=== PATIENT | female | born 1990 | race Caucasian/White ===

== ENCOUNTER 2016-06-07 00:59 | Emergency (ER) ==
[2016-06-07] MEDS ORDERED: DEMEROL 25 MG/ML SYRINGE IVP STA (01:27)
[2016-06-07] MEDS ORDERED: ZOFRAN 4 MG/2 ML IVP STA (01:27)
[2016-06-07] MEDS ORDERED: GI COCKTAIL PO STA (01:29)
--- NOTE | 2016-06-07 01:30 | ED.PDOC ---
General ED Provider: Dr. TOREY CRAIG Chief Complaint: Nausea/Vomiting Stated Complaint: Been sick for 3 days, vomiting, abdominal cramps, today vomiting for 3 hrs, now vomiting bile. Time Seen by Physician: 01:28 Nursing and Triage Documentation Reviewed and Agree: Yes GI Complaint Exam - Vomiting/Diarrhea Complaint/Exam Symptoms Are: Still present Episodes of Vomiting over last 24 Hours: 10 Episodes of Diarrhea Over Last 24 Hours: 0 Initial Severity: Moderate Current Severity: Severe Character of Vomiting: Reports: Bilious Aggravating: Reports: Food, Liquids Alleviating: Reports: None Associated Signs and Symptoms: Reports: Light-headedness, Abdominal pain, Cramping. Denies: Dizziness, Melena, Hematemesis, Fever Menses: Regular Non-GI Risk Factors: Reports: None Surgical Obstruction Risk Factors: Reports: None Related Surgical History: Reports: None Abdominal Findings: Absent: Pulsatile mass, Abdominal distention, Unequal femoral pulses, Rebound tenderness Differential Diagnoses: Bowel Obstruction, Viral Gastroenteritis, Hepatitis, Pancreatitis, UTI Review of Systems - Review Of Systems Constitutional: Reports: Malaise, Weakness Eyes: Reports: No symptoms Ears, Nose, Mouth, Throat: Reports: No symptoms Respiratory: Reports: No symptoms Cardiac: Reports: No symptoms GI: Reports: Abdominal pain : Reports: No symptoms Musculoskeletal: Reports: No symptoms Skin: Reports: No symptoms Neurological: Reports: No symptoms Endocrine: Reports: No symptoms Hematologic/Lymphatic: Reports: No symptoms All Other Systems: Reviewed and Negative Past Medical History - Past Medical History Previously Healthy: Yes (note unable to get history) Endocrine: Reports: None Cardiovascular: Reports: None Respiratory: Reports: None Hematological: Reports: None Gastrointestinal: Reports: None Genitourinary: Reports: None Neuro/Psych: Reports: Anxiety Musculoskeletal: Reports: None Cancer: Reports: None - Surgical History General Surgical History: Reports: Unknown - Family History Family History: Reports: Unknown - Social History Smoking Status: Current every day smoker Smoking Cessation Counseling Time: > 3 min - 10 min Hx Substance Use: No Alcohol Screening: None Physical Exam - Physical Exam Appearance: Ill-appearing Pain Distress: Moderate Eyes: KATIE, EOMI, Conjunctiva clear ENT: Ears normal, Nose normal, Oropharynx normal Respiratory: Airway patent, Breath sounds clear, Breath sounds equal, Respirations nonlabored Cardiovascular: RRR, Pulses normal, No rub, No murmur GI/: Soft, Tender, Bowel sounds hyperactive Musculoskeletal: Normal strength, ROM intact, No edema, No calf tenderness Skin: Warm, Dry, Normal color Neurological: Sensation intact, Motor intact, Reflexes intact, Cranial nerves intact, Alert, Oriented Psychiatric: Affect appropriate, Mood appropriate Critical Care Note - Critical Care Note Total Time (mins): 0 Course - Course Orders, Labs, Meds: Orders Category Date Time Status ED IV/MEDIPORT/POWERPORT .ONCE EMERGENCY 06/07/16 01:27 Ordered AMYLASE Stat LAB 06/07/16 01:27 Ordered CBC W/ AUTO DIFF Stat LAB 06/07/16 01:27 Ordered COMPREHENSIVE METABOLIC PANEL Stat LAB 06/07/16 01:27 Ordered LIPASE Stat LAB 06/07/16 01:27 Ordered URINE Stat LAB 06/07/16 01:27 Uncollected 0.9 % Sodium Chloride [Saline Flush] MEDS 06/07/16 01:27 Ordered 1 syr IVF PRN PRN Meperidine HCl/Pf [Demerol 25 mg/ml Syringe] MEDS 06/07/16 01:27 Stat 25 mg IVP ONCE STA Ondansetron HCl/Pf [Zofran 4 mg/2 ml] MEDS 06/07/16 01:27 Stat 4 mg IVP ONCE STA CT ABDOMEN/PELVIS WO CONTRAST Stat RADS 06/07/16 01:27 Ordered Departure - Departure Time of Disposition: 02:45 Disposition: HOME SELF-CARE Discharge Problem: Gastroenteritis Instructions: Gastroenteritis (ED) Condition: Stable Pt referred to PMD for follow-up: Yes Additional Instructions: INCREASE HYDRATION SOFT DIET FOR 3-4 DAYS PROTONIX 40 PO DAILY ZOFRAN ODT 4 MG PO TID X 20 Allergies/Adverse Reactions: Allergies No Known Allergies Allergy (Unverified 04/10/16 17:26) Home Medications: Ambulatory Orders 1 [No Reported Medications] 04/10/16 Disposition Discussed With: Patient, Family
[2016-06-07 01:31] LABS: BASOPHILS # (AUTO) 0.1 K/uL (0-0.2); BASOPHILS % (AUTO) 0.5 % (0.0-3.0); EOSINOPHILS # (AUTO) 0.3 K/ul (0.0-0.7); EOSINOPHILS % (AUTO) 1.8 % (0.0-7.0); HEMATOCRIT 45.7 % (37.0-47.0); HEMOGLOBIN 15.8 g/dl (12.0-16.0); IMMATURE GRANULOCYTE % (AUTO) 0.5 % (0.0-5.0); MEAN CORPUSCULAR HEMOGLOBIN 31.5 pg (27.0-31.0); MEAN CORPUSCULAR HGB CONC 34.6 (31.8-35.4); MEAN CORPUSCULAR VOLUME 91.2 fl (81.0-99.0); MONOCYTES # (AUTO) 0.9 K/uL (0.4-2.0); MONOCYTES % (AUTO) 4.8 (0-10); NEUTROPHILS # (AUTO) 14.5 K/ul (2.0-6.9); NEUTROPHILS % (AUTO) 81.4; PLATELET COUNT 222 10^3/uL (140-440); RED BLOOD COUNT 5.01 10^6/ul (4.20-5.40); WHITE BLOOD COUNT 17.85 K/ul (4.6-10.2)
[2016-06-07 01:44] LABS: ALBUMIN 3.8 g/dL (3.4-5.0); ANION GAP 16.9; BILIRUBIN,TOTAL 1.18 mg/dL (0.00-1.20); BUN/CREATININE RATIO 11.68; CALCIUM 9.5 mg/dL (8.2-10.2); CREATININE 0.77 mg/dL (0.60-1.30); POTASSIUM 3.9 mmol/L (3.5-5.10); TOTAL PROTEIN 7.6 g/dL (6.4-8.2)
[2016-06-07] MEDS ORDERED: PHENERGAN 25 MG/ML VIAL IM STA (01:59)
[2016-06-07] MEDS ORDERED: DEMEROL 25 MG/ML SYRINGE IM STA (02:01)
[2016-06-07 02:10] LABS: SERUM PREGNANCY INTERNAL QC INTERNAL QC VALID
[2016-06-07 02:46] VITALS: BP 101/58; TEMP 96.8; BMI 28.3
--- NOTE | 2016-06-07 02:59 | CT ---
EXAM: CT of the abdomen and pelvis without contrast. HISTORY: Nausea and vomiting. PROCEDURE: Contiguous axial CT images of the abdomen and pelvis without contrast with coronal and s agittal reformats. FINDINGS: The liver is normal in appearance. The gallbladder is surgically absent. The pancreas, spleen, adrenal glands and kidneys are normal in appearance. The abdominal aorta is normal in appea jeanette. The appendix is not visualized. The other visualized loops of bowel are normal in appearanc e. No free fluid or free air in the abdomen or pelvis. The bladder is minimally filled which limit s the evaluation. The uterus is unremarkable. The bony structures are unremarkable. There is mini mal subcutaneous air in the left flank consistent with an injection site. Impression: No acute findings in the abdomen or pelvis. The appendix is not visualized. Appendicitis cannot be excluded. Cholecystectomy. Minimal subcutaneous air in the left flank consistent with an injection site.
[2016-06-07 03:12] LABS: FLU INTERNAL QC INTERNAL QC VALID; RAPID FLU A NEGATIVE (NEGATIVE); RAPID FLU B NEGATIVE (NEGATIVE)
== END 2016-06-07 03:43 | disposition home or self-care (01) ==
LOC: ED 00:59 → MERGE 00:59 → ED 03:43
DX: K52.9 Noninfective gastroenteritis and colitis, unspecified (principal); F17.210 Nicotine dependence, cigarettes, uncomplicated
CPT/HCPCS: 36415; 80053; 82150; 83690; 84703; 85025; 87804; 96372; 96374; 96375; 99283

== ENCOUNTER 2016-07-28 07:46 | Emergency (ER) ==
[2016-07-28] MEDS ORDERED: GI COCKTAIL PO STA (08:01)
[2016-07-28 08:13] VITALS: BP 122/77; TEMP 97; BMI 27.0
[2016-07-28 08:16] LABS: BASOPHILS # (AUTO) 0.1 K/uL (0-0.2); BASOPHILS % (AUTO) 0.8 % (0.0-3.0); EOSINOPHILS # (AUTO) 0.3 K/ul (0.0-0.7); EOSINOPHILS % (AUTO) 3.1 % (0.0-7.0); HEMATOCRIT 41.8 % (37.0-47.0); IMMATURE GRANULOCYTE % (AUTO) 0.2 % (0.0-5.0); LYMPHOCYTES # (AUTO) 2.7 K/uL (0.60-3.4); LYMPHOCYTES % (AUTO) 29.6 (10.0-50.0); MEAN CORPUSCULAR HEMOGLOBIN 30.6 pg (27.0-31.0); MEAN CORPUSCULAR HGB CONC 33.5 (31.8-35.4); MEAN CORPUSCULAR VOLUME 91.3 fl (81.0-99.0); MONOCYTES # (AUTO) 0.5 K/uL (0.4-2.0); NEUTROPHILS # (AUTO) 5.5 K/ul (2.0-6.9); NEUTROPHILS % (AUTO) 61.3; PLATELET COUNT 285 10^3/uL (140-440); RED BLOOD COUNT 4.58 10^6/ul (4.20-5.40); WHITE BLOOD COUNT 9.04 K/ul (4.6-10.2)
[2016-07-28 08:27] LABS: SERUM PREGNANCY INTERNAL QC INTERNAL QC VALID
[2016-07-28 08:36] LABS: ALBUMIN 3.6 g/dL (3.4-5.0); ALBUMIN/GLOBULIN RATIO 0.95; ANION GAP 13.2; BILIRUBIN,TOTAL 0.38 mg/dL (0.00-1.20); BUN/CREATININE RATIO 9.33; CALCIUM 9.3 mg/dL (8.2-10.2); CREATININE 0.75 mg/dL (0.60-1.30); POTASSIUM 4.2 mmol/L (3.5-5.10); TOTAL PROTEIN 7.4 g/dL (6.4-8.2)
--- NOTE | 2016-07-28 09:05 | CT ---
EXAM: CT ABDOMEN AND PELVIS HISTORY: Epigastric abdominal pain, history of ulcer TECHNIQUE: CT abdomen and pelvis without intravenous contrast. Images were reconstructed using 3 m m section thickness. Reformations were prepared. COMPARISON: 06/07/2016 FINDINGS: Diagnostic limitations exist without including contrast enhanced images. No focal hepatic or splenic lesions identified. Gallbladder is absent. Pancreas and adrenal glands appear normal. Kidneys an d ureters are unremarkable. Normal abdominal aorta. Stomach is grossly unremarkable. Normal appendix. General bowel gas pattern is normal. Uterus and urinary bladder appear normal. There is no ascites or inflammatory infiltration of the abdominal f at. No abdominal wall hernia. Bones reveal apparent degenerative endplate changes of the spine and, unu sual for age. Lung bases are clear and there is no pneumoperitoneum. IMPRESSION: 1. No acute intra-abdominal or pelvic abnormality identified. 2. Bones reveal apparent degenerative endplate changes of the spine and, unusual for age.
--- NOTE | 2016-07-28 09:07 | ED.PDOC ---
General ED Provider: Dr. YAYA BAE Chief Complaint: Abdominal Pain Stated Complaint: abdominal pain Time Seen by Physician: 08:00 Mode of Arrival: Walk-In Information Source: Patient Exam Limitations: No limitations Primary Care Provider: ATIF SALAZAR Nursing and Triage Documentation Reviewed and Agree: Yes GI Complaint Exam - Abdominal Pain Complaint/Exam Onset: Gradual Duration: 1 day Symptoms Are: Still present Timing: Constant Initial Severity: Moderate Current Severity: Moderate Location of Pain: Epigastric Character: Reports: Burning Aggravating: Reports: None Alleviating: Reports: None Associated Signs and Symptoms: Denies: Diaphoresis, Fever, Cough, Chest pain, Dizziness, Back pain, Constipation, Blood in stool, Dysuria, Urinary frequency, Decreased urine output, Decreased appetite, Vaginal bleeding, Vaginal discharge , Nausea, Vomiting, Diarrhea, Sore throat, Decreased activity Related History: Reports: Similar episode AAA Risk Factors: Reports: None Cardiac Risk Factors: Reports: None Ectopic Risk Factors: Reports: None Ovarian Torsion Risk Factors: Reports: None Surgical Obstruction Risk Factors: Reports: None Related Surgical History: Reports: None Patient Rh Status: Unknown Abdominal Findings: Present: None Review of Systems - Review Of Systems Constitutional: Reports: No symptoms Eyes: Reports: No symptoms Ears, Nose, Mouth, Throat: Reports: No symptoms Respiratory: Reports: No symptoms Cardiac: Reports: No symptoms GI: Reports: Abdominal pain : Reports: No symptoms Musculoskeletal: Reports: No symptoms Skin: Reports: No symptoms Neurological: Reports: No symptoms Endocrine: Reports: No symptoms Hematologic/Lymphatic: Reports: No symptoms All Other Systems: Reviewed and Negative Past Medical History - Past Medical History Previously Healthy: Yes (note unable to get history) Endocrine: Reports: None Cardiovascular: Reports: None Respiratory: Reports: None Hematological: Reports: None Gastrointestinal: Reports: None, Other Genitourinary: Reports: None Neuro/Psych: Reports: None, Anxiety Musculoskeletal: Reports: None Cancer: Reports: None Last Menstrual Period: 1 1/2 weeks ago - Surgical History General Surgical History: Reports: Cholecystectomy, Unknown - Family History Family History: Reports: Unknown - Social History Smoking Status: Current every day smoker Hx Substance Use: No Alcohol Screening: None Physical Exam - Physical Exam Appearance: Well-appearing, No pain distress, Well-nourished Eyes: KATIE, EOMI, Conjunctiva clear ENT: Ears normal, Nose normal, Oropharynx normal Respiratory: Airway patent, Breath sounds clear, Breath sounds equal, Respirations nonlabored Cardiovascular: RRR, Pulses normal, No rub, No murmur GI/: Soft, Nontender, No masses, Bowel sounds normal, No Organomegaly Musculoskeletal: Normal strength, ROM intact, No edema, No calf tenderness Skin: Warm, Dry, Normal color Neurological: Sensation intact, Motor intact, Reflexes intact, Cranial nerves intact, Alert, Oriented Psychiatric: Affect appropriate, Mood appropriate Critical Care Note - Critical Care Note Total Time (mins): 0 Course - Course Hematology/Chemistry: 07/28/16 08:05 07/28/16 08:05 Orders, Labs, Meds: Lab Review 07/28/16 08:05 WBC 9.04 RBC 4.58 Hgb 14.0 Hct 41.8 MCV 91.3 MCH 30.6 MCHC 33.5 RDW Coeff of [place]line 12.4 Plt Count 285 Immature Gran % (Auto) 0.2 Neut % (Auto) 61.3 Lymph % (Auto) 29.6 [place] % (Auto) 5.0 Eos % (Auto) 3.1 Baso % (Auto) 0.8 Immature Gran # (Auto) 0.0 Neut # 5.5 Lymph # 2.7 [place] # 0.5 Eos # 0.3 Baso # 0.1 Sodium 137 Potassium 4.2 Chloride 108 H Carbon Dioxide 20 L Anion Gap 13.2 BUN 7 Creatinine 0.75 Estimated GFR (MDRD) 95.00 BUN/Creatinine Ratio 9.33 Glucose 104 Calcium 9.3 Total Bilirubin 0.38 AST 15 ALT 12 Alkaline Phosphatase 85 Total Protein 7.4 Albumin 3.6 Globulin 3.8 Albumin/Globulin Ratio 0.95 Amylase 42 Lipase 11 Serum , Qual Negative Orders Category Date Time Status AMYLASE Stat LAB 07/28/16 08:05 Completed CBC W/ AUTO DIFF Stat LAB 07/28/16 08:05 Completed COMPREHENSIVE METABOLIC PANEL Stat LAB 07/28/16 08:05 Completed LIPASE Stat LAB 07/28/16 08:05 Completed SERUM Stat LAB 07/28/16 08:05 Completed Mag-Al Plus//Lidocaine [Gi Cocktail] MEDS 07/28/16 08:01 Discontinued 30 ml PO ONCE STA CT ABDOMEN/PELVIS WO CONTRAST Stat RADS 07/28/16 08:00 Taken Medications Discontinued Medications Generic Name Dose Route Start Last Admin Trade Name Freq PRN Reason Stop Dose Admin Al Hydroxide/Mg Hydroxide 30 ml 07/28/16 08:01 07/28/16 08:06 Gi Cocktail PO 07/28/16 08:02 30 ml ONCE STA Administration Vital Signs: Temp Pulse Resp BP Pulse Ox 07/28/16 07:46 97.0 F L 94 H 20 122/77 98 Departure - Departure Time of Disposition: 09:36 (pt responded well to GI COCKTAIL, HAS AN APPOINTMENT WITH GI IN AM ) Disposition: HOME SELF-CARE Discharge Problem: Abdominal pain Instructions: Abdominal Pain (ED) Condition: Good Pt referred to PMD for follow-up: No Additional Instructions: Please call your Family Physician as soon as possible to schedule a follow-up appointment.PLEASE KEEP YOUR APPOINTMENT IN AM Allergies/Adverse Reactions: Allergies amoxicillin trihydrate [From Amoxil] Adverse Reaction (Verified 07/28/16 07:52) codeine Adverse Reaction (Verified 07/28/16 07:52) iv contrast Adverse Reaction (Uncoded 07/28/16 07:52) Home Medications: Ambulatory Orders Omeprazole [Prilosec] 20 mg PO QDAC 02/09/16 Gabapentin [Neurontin] 300 mg PO QID 07/28/16 Norelgestromin/Ethin.estradiol [Xulane Patch] 1 each TD WEEKLY 07/28/16 Rizatriptan Benzoate [Maxalt] 10 mg PO PRN PRN 07/28/16 Disposition Discussed With: Patient
== END 2016-07-28 09:17 | disposition home or self-care (01) ==
LOC: ED 07:46
DX: R10.13 Epigastric pain (principal); F17.210 Nicotine dependence, cigarettes, uncomplicated
CPT/HCPCS: 36415; 80053; 82150; 83690; 84703; 85025; 99283

== ENCOUNTER 2016-10-16 10:01 | Outpatient (CLI) ==
--- NOTE | 2016-10-16 13:58 | CT ---
EXAM: CT of the abdomen pelvis without contrast History: Abdominal pain. Comparison: CT abdomen pelvis 07/28/2016 Technique: Multiplanar CT images through the abdomen pelvis were obtained without the administratio n of IV contrast Findings: Lung bases are free of consolidation. No acute osseous abnormalities. No renal stones a nd no hydronephrosis. Status post cholecystectomy. No focal liver or splenic lesions. No peripanc reatic inflammation. Adrenal glands are unremarkable. No dilated loops of bowel. Scattered coloni c stool. The appendix is not dilated or inflamed. No free air. No ascites. Bladder is not well d istended. Moderate stool seen distending the rectum. Adnexal structures appear appropriate for pat ient's age. 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 Impression: No acute intra-abdominal or pelvic process
== END 2016-10-16 10:02 | disposition home or self-care (01) ==
LOC: RAD 10:01
PROVIDERS: ATTEND Physician Assistant Medical
DX: R10.9 Unspecified abdominal pain (principal)

== ENCOUNTER 2017-02-06 15:35 | Emergency (ER) ==
[2017-02-06 15:38] VITALS: BP 117/66; TEMP 98.9; BMI 26.6
--- NOTE | 2017-02-06 15:57 | ED.PDOC ---
General ED Provider: Dr. MARYJO VERA Chief Complaint: Foot Pain/Injury Stated Complaint: Fell up stairs, injurying right big toe and tearing right big toenail partly off. Time Seen by Physician: 15:54 Mode of Arrival: Walk-In Information Source: Patient Exam Limitations: No limitations Primary Care Provider: BOYD CLAYTON Nursing and Triage Documentation Reviewed and Agree: Yes Skin Complaint Exam - Laceration/Lower Ext. Complaint/Exam Location of Injury: Right, Toe #1 Mechanism of Injury: Laceration (nail partially avulsed from medial side) Onset/Duration: 1514 today Symptoms Are: Still present Initial Severity: Severe Current Severity: Moderate Aggravating: Movement Alleviating: None Differential Diagnoses: Avulsion (partial of right big toenail), Closed Fracture , Laceration, Other (big toe sprain) Review of Systems - Review Of Systems Constitutional: Reports: No symptoms Musculoskeletal: Reports: Joint pain (right big toe MTP joint is painful to palpation and any ROM) Skin: Reports: Other (avulsion of right big toenail from medial side, with possible laceration) Neurological: Reports: Anxiety All Other Systems: Reviewed and Negative Past Medical History - Past Medical History Previously Healthy: Yes (note unable to get history) Endocrine: Reports: None Cardiovascular: Reports: None Respiratory: Reports: None Hematological: Reports: None Gastrointestinal: Reports: None Genitourinary: Reports: None Neuro/Psych: Reports: Migraine, Anxiety Musculoskeletal: Reports: None Cancer: Reports: None Last Menstrual Period: 01/25/17 - Surgical History General Surgical History: Reports: Cholecystectomy, Unknown - Family History Family History: Reports: Unknown - Social History Smoking Status: Current every day smoker Hx Substance Use: No Alcohol Screening: None Lives: With family - Immunizations Tetanus Shot up to Date: No Influenza Vaccine within 12 Months: No Pneumococcal Vaccine up to Date: No Physical Exam - Physical Exam Appearance: Well-appearing, Well-nourished Ill-appearing: None Pain Distress: Moderate Musculoskeletal: Normal strength, No edema, No calf tenderness, Limited ROM ( right big toe MTP joint is painful wih attempted ROM in any direction) Skin: Warm (right big toenail is partially avulsed from medial side, possible laceration of nailbed), Dry, Normal color Neurological: Sensation intact, Motor intact, Reflexes intact, Cranial nerves intact, Alert, Oriented Psychiatric: Affect appropriate, Mood appropriate, Anxious Interpretation - Radiology Interpretation Radiology Interpretation By: Radiologist Radiology Results: Negative Exam Interpreted: Other Xray Comments: right foot Procedures - Laceration/Wound Repair No standard instances Wound Description: Nail-avulsed Wound Prep: Saline, Other (alcohol swab) Anesthesia: Lidocaine (1% plain, required two injections 10 min apart to get complete anesthesia), Digital nerve block Sterile Dressing Applied?: Yes Progress: Nailavulsed to lateral base, removed with mild tugging. Medial aspect of toenail skin removed with nail (already avulsed). Mild oozing from nailbed medial edge, controlled with pressure. No suturing indicated. Nail bed dressed with telfa and bulky dressing. Critical Care Note - Critical Care Note Total Time (mins): 0 Course - Course Orders, Labs, Meds: Lab Review 02/06/17 16:06 Urine Test Negative Orders Category Date Time Status TEST URINE [URINE ] Stat LAB 02/06/17 16:06 Completed Diphth,Pertuss(Acell),Tet Vac [Boostrix] MEDS 02/06/17 16:05 Discontinued 0.5 ml IM .ONCE ONE Lidocaine HCl/Pf [Lidocaine HCl 1% Sdv] MEDS 02/06/17 16:05 Discontinued 5 ml .ROUTE .STK-MED ONE Lidocaine HCl/Pf [Lidocaine HCl 1% Sdv] MEDS 02/06/17 16:06 Discontinued 5 ml SUBCUT ONCE STA FOOT, RIGHT 3 VIEWS Stat RADS 02/06/17 15:57 Ordered Medications Discontinued Medications Generic Name Dose Route Start Last Admin Trade Name Freq PRN Reason Stop Dose Admin Diphtheria/Pertussis/Tetanus Vacc 0.5 ml 02/06/17 16:05 Boostrix IM 02/06/17 16:06 .ONCE ONE Lidocaine HCl 5 ml 02/06/17 16:06 Lidocaine Hcl 1% Sdv SUBCUT 02/06/17 16:07 ONCE STA Vital Signs: Temp Pulse Resp BP Pulse Ox 02/06/17 15:36 98.9 F 93 H 20 117/66 96 Departure - Departure Time of Disposition: 17:08 Disposition: HOME SELF-CARE Discharge Problem: Avulsion of toenail of right foot Instructions: Nail Avulsion (ED) Condition: Good Pt referred to PMD for follow-up: No (if any problemssee doctor.Avoid weight- bearing on right big toe for one wk) Allergies/Adverse Reactions: Allergies amoxicillin trihydrate [From Amoxil] Adverse Reaction (Verified 02/06/17 15:39) codeine Adverse Reaction (Verified 02/06/17 15:39) iv contrast Adverse Reaction (Uncoded 02/06/17 15:39) Home Medications: Ambulatory Orders Gabapentin [Neurontin] 300 mg PO QID 07/28/16 Norelgestromin/Ethin.estradiol [Xulane Patch] 1 each TD WEEKLY 07/28/16 Rizatriptan Benzoate [Maxalt] 10 mg PO PRN PRN 07/28/16 Acetaminophen with Codeine [Tylenol #3 Tab] 1 tab PO Q4H PRN #20 tablet Cephalexin [Keflex] 500 mg PO BID #10 capsule 02/06/17 Tramadol HCl [Ultram] 50 mg PO Q4H PRN #20 tablet 02/06/17 Disposition Discussed With: Patient, Family
[2017-02-06] MEDS ORDERED: LIDOCAINE 1% 20 ML MDV INJ STA (15:59)
[2017-02-06] MEDS: LIDOCAINE HCL 1% SDV ONE (16:10)
[2017-02-06 16:14] LABS: URINE PREGNANCY INTERNAL QC INTERNAL QC VALID
[2017-02-06] MEDS: BOOSTRIX IM ONE (16:25)
[2017-02-06] MEDS: LIDOCAINE HCL 1% SDV SUBCUT STA (16:31)
--- NOTE | 2017-02-06 16:53 | DI ---
EXAM: Radiographs, right foot HISTORY: Initial presentation for right foot trauma. COMPARISON: None available. TECHNIQUE: Three views. FINDINGS: Bone mineralization is normal. There is no fracture or dislocation. The joint spaces are maintained. No focal soft tissue abnormality is seen. IMPRESSION: No fracture or dislocation.
== END 2017-02-06 17:20 | disposition home or self-care (01) ==
LOC: ED 15:35
DX: S91.204A Unspecified open wound of right lesser toe(s) with damage to nail, initial encounter (principal); W10.9XXA Fall (on) (from) unspecified stairs and steps, initial encounter; F17.210 Nicotine dependence, cigarettes, uncomplicated
CPT/HCPCS: 81025; 90471; 90715; 96372; 99283

== ENCOUNTER 2017-04-01 10:49 | Emergency (ER) ==
[2017-04-01 10:54] VITALS: BP 125/78; TEMP 98.5; BMI 26.9
[2017-04-01] MEDS ORDERED: ZOFRAN TAB PO STA (10:55)
--- NOTE | 2017-04-01 11:04 | ED.PDOC ---
General ED Provider: Dr. CLAUS MCFARLAND JR Chief Complaint: Nausea/Vomiting Stated Complaint: woke up severe nausea this morning, vomited once, cramping to lower abdomen, fever, chills, diarrhea, unable to keep liquids down[ End ]began last night 98.5 83 20 95% 125/78 10/04 Time Seen by Physician: 11:04 Mode of Arrival: Walk-In Information Source: Patient Exam Limitations: No limitations Primary Care Provider: BOYD CLAYTON Nursing and Triage Documentation Reviewed and Agree: No Review of Systems - Review Of Systems Constitutional: Reports: Malaise, Weakness Eyes: Reports: No symptoms Ears, Nose, Mouth, Throat: Reports: No symptoms Respiratory: Reports: No symptoms Cardiac: Reports: No symptoms GI: Reports: Abdominal pain, Diarrhea (x4 this am), Nausea, Vomiting (x2 today) : Reports: No symptoms Musculoskeletal: Reports: No symptoms Skin: Reports: No symptoms Neurological: Reports: No symptoms Endocrine: Reports: No symptoms Hematologic/Lymphatic: Reports: No symptoms All Other Systems: Other Past Medical History - Past Medical History Previously Healthy: Yes (note unable to get history) Endocrine: Reports: None Cardiovascular: Reports: None Respiratory: Reports: None Hematological: Reports: None Gastrointestinal: Reports: PUD Genitourinary: Reports: None Neuro/Psych: Reports: Migraine, Anxiety, Depression Musculoskeletal: Reports: None Cancer: Reports: None Last Menstrual Period: 3 days ago - Surgical History General Surgical History: Reports: Cholecystectomy, Other (ulcers,liver biopsy) , Unknown. Denies: Hysterectomy (pre-cancerous cells removed,ablation ) - Family History Family History: Reports: Unknown - Social History Smoking Status: Current every day smoker, Heavy tobacco smoker Hx Substance Use: No Alcohol Screening: None - Immunizations Influenza Vaccine within 12 Months: No Pneumococcal Vaccine up to Date: No Physical Exam - Physical Exam Appearance: Ill-appearing Ill-appearing: Moderate Pain Distress: Moderate Eyes: KATIE, EOMI, Conjunctiva clear ENT: Ears normal, Nose normal, Oropharynx normal Neck: Supple Respiratory: Airway patent, Breath sounds clear, Breath sounds equal, Respirations nonlabored Cardiovascular: RRR, Pulses normal, No rub, No murmur GI/: Soft, Tender (epigastric and colonic distribution denies cough headache is slight) Musculoskeletal: Normal strength ("feel weak"), ROM intact, No edema, No calf tenderness Skin: Warm, Dry, Normal color Neurological: Sensation intact, Motor intact, Reflexes intact, Cranial nerves intact, Alert, Oriented Psychiatric: Affect appropriate, Mood appropriate Critical Care Note - Critical Care Note Total Time (mins): 0 Course - Course Orders, Labs, Meds: Lab Review 04/01/17 11:30 Urine Color Yellow Urine Clarity Clear Urine pH 7.0 Ur Specific [place] 1.020 Urine Protein Negative Urine Glucose (UA) Negative Urine Ketones Negative Urine Blood Trace-intact Urine Nitrite Negative Urine Bilirubin Negative Urine Urobilinogen 0.2 Ur Leukocyte Esterase Negative Urine Microscopic RBC 0-2 Urine Microscopic WBC 0-2 Ur Squamous Epith Cells 10-20 Orders Category Date Time Status UA [URINALYSIS C & S IF INDICATED] Stat LAB 04/01/17 11:30 Completed Ondansetron HCl [Zofran Tab] MEDS 04/01/17 10:55 Discontinued 4 mg PO ONCE STA Medications Discontinued Medications Generic Name Dose Route Start Last Admin Trade Name Freq PRN Reason Stop Dose Admin Ondansetron HCl 4 mg 04/01/17 10:55 04/01/17 11:27 Zofran Tab PO 04/01/17 10:56 4 mg ONCE STA Administration Vital Signs: Temp Pulse Resp BP Pulse Ox 04/01/17 10:49 98.5 F 83 20 125/78 95 Departure - Departure Time of Disposition: 12:19 Disposition: HOME SELF-CARE Discharge Problem: Nausea, Vomiting Instructions: Acute Nausea and Vomiting (ED) Condition: Good Pt referred to PMD for follow-up: Yes Additional Instructions: home rest clear liquids for 12 hours then no restriction, nothing by mouth for 20 to 60 minutes if nauseated or vomiting may use phenergan or zofran for nausea 8 to 10, 8 ounce cups clear liquid daily for three days Prescriptions: Ondansetron HCl [Zofran Tab] 4 mg PO QID PRN #12 tablet PRN Reason: Nausea / Vomiting Promethazine HCl [Phenergan Tab] 25 mg PO QID PRN #12 tablet PRN Reason: Nausea / Vomiting Allergies/Adverse Reactions: Allergies amoxicillin trihydrate [From Amoxil] Adverse Reaction (Verified 04/01/17 10:55) codeine Adverse Reaction (Verified 04/01/17 10:55) iv contrast Adverse Reaction (Uncoded 02/06/17 15:39) Home Medications: Ambulatory Orders Gabapentin [Neurontin] 300 mg PO QID 07/28/16 Norelgestromin/Ethin.estradiol [Xulane Patch] 1 each TD WEEKLY 07/28/16 Rizatriptan Benzoate [Maxalt] 10 mg PO PRN PRN 07/28/16 Tramadol HCl [Ultram] 50 mg PO Q4H PRN #20 tablet 02/06/17 Ondansetron HCl [Zofran Tab] 4 mg PO QID PRN #12 tablet 04/01/17 Promethazine HCl [Phenergan Tab] 25 mg PO QID PRN #12 tablet 04/01/17
[2017-04-01 11:39] LABS: BILIRUBIN,URINE Negative (NEGATIVE); KETONES,URINE Negative (NEGATIVE); LEUKOCYTE ESTERASE ,URINE Negative (NEGATIVE); NITRITE,URINE Negative (NEGATIVE); PROTEIN,URINE Negative (NEGATIVE); URINE, BLOOD Trace-intact (NEGATIVE)
[2017-04-01 11:48] LABS: ADD URINE MICROSCOPIC YES
== END 2017-04-01 12:37 | disposition home or self-care (01) ==
LOC: ED 10:49
DX: R11.2 Nausea with vomiting, unspecified (principal); R19.7 Diarrhea, unspecified; R10.30 Lower abdominal pain, unspecified; F17.210 Nicotine dependence, cigarettes, uncomplicated
CPT/HCPCS: 81001; 99283

== ENCOUNTER 2018-07-19 17:55 | Emergency (ER) ==
[2018-07-19 17:59] VITALS: BP 154/102; TEMP 98.2; BMI 35.4
--- NOTE | 2018-07-19 19:24 | ED.PDOC ---
General ED Provider: Dr. CASSI CALDWELL Chief Complaint: Earache Stated Complaint: bilateral ear ache for 10 days, unable to get to the Doctor. Time Seen by Physician: 19:22 Mode of Arrival: Walk-In Information Source: Patient Exam Limitations: No limitations Nursing and Triage Documentation Reviewed and Agree: Yes Does patient meet sepsis criteria?: No System Inflammatory Response Syndrome: Not Applicable Sepsis Protocol: For patient's 13 years and over: Temp is 96.8 and below OR 101 and greater Pulse >90 BPM Resp >20/minute Acutely Altered Mental Status Are patient's symptoms suggestive of a new infection, such as: -Pneumonia -Skin, Soft Tissue -Endocarditis -UTI -Bone, Joint Infection -Implantable Device -Acute Abdominal Infection -Wound Infection -Meningitis -Blood Stream Catheter Infection -Unknown Review of Systems - Review Of Systems Constitutional: Reports: No symptoms Eyes: Reports: No symptoms Ears, Nose, Mouth, Throat: Reports: Ear pain Respiratory: Reports: No symptoms Cardiac: Reports: No symptoms GI: Reports: No symptoms : Reports: No symptoms Musculoskeletal: Reports: No symptoms Skin: Reports: No symptoms Neurological: Reports: No symptoms Endocrine: Reports: No symptoms Hematologic/Lymphatic: Reports: No symptoms All Other Systems: Reviewed and Negative Past Medical History - Past Medical History Previously Healthy: Yes (note unable to get history) Endocrine: Reports: None Cardiovascular: Reports: None Respiratory: Reports: None Hematological: Reports: None Gastrointestinal: Reports: None Genitourinary: Reports: None Neuro/Psych: Reports: Migraine, Anxiety Musculoskeletal: Reports: None Cancer: Reports: None Last Menstrual Period: 11 days ago - Surgical History General Surgical History: Reports: Cholecystectomy, Unknown - Family History Family History: Reports: Unknown - Social History Smoking Status: Current every day smoker, Heavy tobacco smoker, Light tobacco smoker Hx Substance Use: No Alcohol Screening: None - Immunizations Influenza Vaccine within 12 Months: No Pneumococcal Vaccine up to Date: No Physical Exam - Physical Exam Appearance: Well-appearing Pain Distress: Moderate Eyes: KATIE, EOMI, Conjunctiva clear ENT: Ears normal, Nose normal, Oropharynx normal Respiratory: Airway patent, Breath sounds clear, Breath sounds equal, Respirations nonlabored Cardiovascular: RRR, Pulses normal, No rub, No murmur GI/: Soft, Nontender, No masses, Bowel sounds normal, No Organomegaly Musculoskeletal: Normal strength, ROM intact, No edema, No calf tenderness Skin: Warm, Dry, Normal color Neurological: Sensation intact, Motor intact, Reflexes intact, Cranial nerves intact, Alert, Oriented Psychiatric: Affect appropriate, Mood appropriate Critical Care Note - Critical Care Note Total Time (mins): 0 Course - Course Vital Signs: Temp Pulse Resp BP Pulse Ox 07/19/18 17:56 98.2 F 106 H 20 154/102 H 97 Departure - Departure Time of Disposition: 19:22 Disposition: HOME SELF-CARE Discharge Problem: Otalgia of both ears Instructions: Earache (ED) Condition: Fair Pt referred to PMD for follow-up: Yes IPMP verified?: No Additional Instructions: take over the counter Medications as prescribed Follow up with PCP in 3 days Allergies/Adverse Reactions: Allergies amoxicillin trihydrate [From Amoxil] Adverse Reaction (Verified 07/19/18 18:00) codeine Adverse Reaction (Verified 07/19/18 18:00) iv contrast Adverse Reaction (Uncoded 02/06/17 15:39) Home Medications: Ambulatory Orders Norelgestromin/Ethin.estradiol [Xulane Patch] 1 each TD WEEKLY 07/28/16 Rizatriptan Benzoate [Maxalt] 10 mg PO PRN PRN 07/28/16 Disposition Discussed With: Patient
== END 2018-07-19 19:30 | disposition home or self-care (01) ==
LOC: ED 17:55
DX: H92.03 Otalgia, bilateral (principal); F17.210 Nicotine dependence, cigarettes, uncomplicated
CPT/HCPCS: 99281

== ENCOUNTER 2018-07-21 22:16 | Emergency (ER) ==
[2018-07-21 22:21] VITALS: BP 138/82; TEMP 99.9; BMI 32.3
--- NOTE | 2018-07-21 22:35 | ED.PDOC ---
General ED Provider: Dr. DEVORAH BURT Chief Complaint: Nausea/Vomiting Stated Complaint: three days of "flu" with nausea,sometimes emesis and also loose BM.It is possible flu came from her two little children who appear to well now. Time Seen by Physician: 22:25 Mode of Arrival: Walk-In Information Source: Patient Exam Limitations: No limitations Nursing and Triage Documentation Reviewed and Agree: Yes Does patient meet sepsis criteria?: No System Inflammatory Response Syndrome: Not Applicable Sepsis Protocol: For patient's 13 years and over: Temp is 96.8 and below OR 101 and greater Pulse >90 BPM Resp >20/minute Acutely Altered Mental Status Are patient's symptoms suggestive of a new infection, such as: -Pneumonia -Skin, Soft Tissue -Endocarditis -UTI -Bone, Joint Infection -Implantable Device -Acute Abdominal Infection -Wound Infection -Meningitis -Blood Stream Catheter Infection -Unknown GI Complaint Exam - Abdominal Pain Complaint/Exam Onset: Gradual Duration: three days Symptoms Are: Still present Timing: Intermittent Initial Severity: Moderate Current Severity: Mild Aggravating: Reports: Food, Eating Alleviating: Reports: Rest Associated Signs and Symptoms: Reports: Fever, Diarrhea, Decreased activity Review of Systems - Review Of Systems Constitutional: Reports: Fever, Weakness, Loss of appetite Eyes: Reports: No symptoms Ears, Nose, Mouth, Throat: Reports: No symptoms Respiratory: Reports: Other Cardiac: Reports: No symptoms GI: Reports: Diarrhea, Nausea, Poor appetite : Reports: No symptoms Musculoskeletal: Reports: No symptoms, Muscle pain Skin: Reports: No symptoms Neurological: Reports: No symptoms Endocrine: Reports: No symptoms Hematologic/Lymphatic: Reports: No symptoms All Other Systems: Reviewed and Negative Past Medical History - Past Medical History Previously Healthy: Yes (note unable to get history) Endocrine: Reports: None Cardiovascular: Reports: None Respiratory: Reports: None Hematological: Reports: None Gastrointestinal: Reports: None Genitourinary: Reports: None Neuro/Psych: Reports: Migraine, Anxiety Musculoskeletal: Reports: None Cancer: Reports: None Last Menstrual Period: 12 days - Surgical History General Surgical History: Reports: Cholecystectomy, Unknown - Family History Family History: Reports: Unknown - Social History Smoking Status: Current every day smoker, Heavy tobacco smoker, Light tobacco smoker Hx Substance Use: Yes Alcohol Screening: None - Immunizations Tetanus Shot up to Date: Yes Influenza Vaccine within 12 Months: No Pneumococcal Vaccine up to Date: No Physical Exam - Physical Exam Appearance: Well-appearing Ill-appearing: None Pain Distress: Mild ENT: Ears normal Neck: Supple Respiratory: Airway patent, Breath sounds clear Cardiovascular: RRR GI/: Soft, Nontender, Bowel sounds hyperactive Musculoskeletal: Normal strength Skin: Warm Neurological: Sensation intact Psychiatric: Affect appropriate Critical Care Note - Critical Care Note Total Time (mins): 0 Course - Course Orders, Labs, Meds: Lab Review 07/21/18 07/21/18 22:27 22:55 Urine Color Yellow Urine Clarity Clear Urine pH 6.5 Ur Specific [place] <=1.005 Urine Protein Negative Urine Glucose (UA) Negative Urine Ketones Negative Urine Blood Trace-intact Urine Nitrite Negative Urine Bilirubin Negative Urine Urobilinogen 0.2 Ur Leukocyte Esterase 1+ Urine Microscopic RBC 2-5 Urine Microscopic WBC 5-10 Ur Squamous Epith Cells 5-10 Urine Bacteria Trace Influ A Molecular Assay Negative by naat Influ B Molecular Assay Negative by naat Orders Category Date Time Status IV [ED IV/MEDIPORT/POWERPORT] .ONCE EMERGENCY 07/21/18 22:39 Inactive MOLECULAR FLU A & B [FLU A/B MOLECULAR] Stat LAB 07/21/18 22:27 Completed URINALYSIS C & S IF INDICATED Stat LAB 07/21/18 22:55 Completed URINE CULTURE Stat LAB 07/21/18 22:55 Received Ondansetron [Zofran Odt] MEDS 07/21/18 22:47 Discontinued 4 mg PO ONCE STA Medications Discontinued Medications Generic Name Dose Route Start Last Admin Trade Name Freq PRN Reason Stop Dose Admin Ondansetron HCl 4 mg 07/21/18 22:47 07/21/18 22:51 Zofran Odt PO 07/21/18 22:48 4 mg ONCE STA Administration Vital Signs: Temp Pulse Resp BP Pulse Ox 07/21/18 22:17 99.9 F H 107 H 18 138/82 98 Departure - Departure Time of Disposition: 23:42 Disposition: HOME SELF-CARE Discharge Problem: Nausea & vomiting Instructions: Dehydration (ED) Condition: Good Pt referred to PMD for follow-up: Yes (PCP at am) IPMP verified?: No Allergies/Adverse Reactions: Allergies amoxicillin trihydrate [From Amoxil] Adverse Reaction (Verified 07/21/18 22:20) codeine Adverse Reaction (Verified 07/21/18 22:20) iv contrast Adverse Reaction (Uncoded 07/21/18 22:20) Home Medications: Ambulatory Orders Norelgestromin/Ethin.estradiol [Xulane Patch] 1 each TD WEEKLY 07/28/16 Rizatriptan Benzoate [Maxalt] 10 mg PO PRN PRN 07/28/16 Disposition Discussed With: Patient
[2018-07-21] MEDS ORDERED: SODIUM CHLORIDE 1,000 ML IV STA (22:41)
[2018-07-21] MEDS ORDERED: ZOFRAN 4 MG/2 ML IVP STA (22:41)
[2018-07-21] MEDS ORDERED: ZOFRAN ODT PO STA (22:47)
== END 2018-07-21 23:49 | disposition home or self-care (01) ==
LOC: ED 22:16
DX: R11.2 Nausea with vomiting, unspecified (principal); R19.7 Diarrhea, unspecified; R50.9 Fever, unspecified; R53.1 Weakness; F17.210 Nicotine dependence, cigarettes, uncomplicated
CPT/HCPCS: 81001; 87086; 87502; 99282